=== PATIENT | female | born 1960 | race Caucasian/White ===

== ENCOUNTER → 2018-03-17 | Outpatient (REF) ==
[~2018-03-17] MED LIST: CETI-176 PO; CETI-184 PO; CHOL200025 PO; CLOT30SO6 TP; GABA-490 PO; GABA-549 PO; GOLYTE PO; LEVO88TA45 PO; MELO-205 PO; POLY119P24 PO; SOLI10TA8 PO; TOPI-119 PO; TOPI-121 PO; TRI05T TP; VENL150C61 PO
--- NOTE | 2018-03-17 13:40 | RADIOLOGY IMAGING REPORT ---
FACILITY: [facility] - [place] PATIENT NAME: Michelle Kaminski : 1960 MR: [id number] V: [id number] EXAM DATE: ORDERING PHYSICIAN: KUN CHRISTOPHER TECHNOLOGIST: [place] [facility] [place] : 1960 Visit/Account:[id number] Date of Sevice: 03/17/2018 Exam type: LUMBAR SPINE 2 OR 3 VIEW History: Chronic lower back pain radiates down both legs, right greater than left Comparison: January 15, 2016. Findings: Three views submitted for interpretation Five nonrib-bearing lumbar-type vertebral bodies present. There is mild straightening of normal lumb ar lordosis. There is no evidence of acute fractures or subluxations. There is moderate disc space narrowing L5-S1 and mild disc space narrowing L3-4 and L4-5. Anterior Osteophytes from L1 to L4. Mo derate degenerative facet joint changes L5-S1. Also noted are moderate spondylotic changes in the vi sualized portion of the lower thoracic spine IMPRESSION: 1. Spondylotic changes of the thoracolumbar spine as detailed above. Findings appear some are to th e prior examination Report Dictated By: Jennifer Villagomez MD at 03/17/2018 1:30 PM Report E-Signed By: Jennifer Villagomez MD at 03/17/2018 1:35 PM WSN:[email or web address]
== END ==
LOC: RAD 10:20
PROVIDERS: ATTEND Orthopaedic Surgery Orthopaedic Surgery of the Spine
DX: M54.5 Low back pain (principal)
CPT/HCPCS: 72100

== ENCOUNTER → 2018-04-14 | Outpatient (CLI) | payer OTHER ==
--- NOTE | 2018-04-14 13:16 | RADIOLOGY IMAGING REPORT ---
FACILITY: [facility] - [place] PATIENT NAME: HIRAL LOPEZ : [id number] MR: [id number] V: [id number] EXAM DATE: ORDERING PHYSICIAN: AYLEEN JEREZ TECHNOLOGIST: Teresa Stokes PROCEDURE:BILATERAL DIGITAL SCREENING MAMMOGRAM WITH CAD ASSISTED INTERPRETATION & 3D TOMOSYNTHESIS COMPARISON:10/30/16, 09/28/09 & 09/18/09 INDICATIONS:SREENING FINDINGS: Breast parenchyma is mostly fatty replaced. There are no mammographic findings concerning for malignancy. There is no significant interval change. DIAGNOSTIC CATEGORY 1--NEGATIVE. RECOMMENDATIONS: ROUTINE MAMMOGRAM AND CLINICAL EVALUATION. IMPRESSION: BIRADS 1: Negative. Dictated by: Willian Levine on 04/14/2018 at 11:52 Transcribed by: EMEKA on 04/14/2018 at 12:54 Approved by: Willian Levine on 04/14/2018 at 13:16 [facility]
== END ==
LOC: MAMO 09:30 → EDSTATUS 10:00 → MAMO 10:01
PROVIDERS: ATTEND Nurse Practitioner
DX: Z12.31 Encounter for screening mammogram for malignant neoplasm of breast (principal)
CPT/HCPCS: 77063; 77067

== ENCOUNTER → 2019-04-12 | Outpatient (CLI) | payer MEDICAID ==
--- NOTE | 2019-04-12 16:00 | RADIOLOGY IMAGING REPORT ---
FACILITY: [facility] - [place] PATIENT NAME: Michelle Kaminski : 1960 MR: [id number] V: [id number] EXAM DATE: ORDERING PHYSICIAN: DREA MONTOYA TECHNOLOGIST: Location[place] [facility] [place] Patient: Michelle Kaminski : 1960 Visit/Account:[id number] Date of Sevice: 04/12/2019 Technique: PELVIS, SACRUM & COCCYX HISTORY: Fall Comparison studies: None FINDINGS: There is no acute fracture. Joint space narrowing is noted within the femoroacetabular carmen nts. There are also degenerative changes at the SI joints. No evidence of pubic symphysis or sacroi liac diastases. IMPRESSION: 1. No acute osseous process. 2. Degenerative findings. Report Dictated By: Mychal Rojas DO at 04/12/2019 3:51 PM Report E-Signed By: Mychal Rojas DO at 04/12/2019 3:55 PM WSN:[email or web address]
--- NOTE | 2019-04-12 16:01 | RADIOLOGY IMAGING REPORT ---
FACILITY: [facility] - [place] PATIENT NAME: Michelle Kaminski : 1960 MR: [id number] V: [id number] EXAM DATE: ORDERING PHYSICIAN: DREA MONTOYA TECHNOLOGIST: Location: [facility] - [place] Patient: Michelle Kaminski : 1960 Visit/Account:[id number] Date of Sevice: 04/12/2019 Technique: PELVIS, SACRUM & COCCYX HISTORY: Fall Comparison studies: None FINDINGS: There is no acute fracture. Joint space narrowing is noted within the femoroacetabular carmen nts. There are also degenerative changes at the SI joints. No evidence of pubic symphysis or sacroi liac diastases. IMPRESSION: 1. No acute osseous process. 2. Degenerative findings. Report Dictated By: Mychal Rojas DO at 04/12/2019 3:51 PM Report E-Signed By: Mychal Rojas DO at 04/12/2019 3:55 PM WSN:[email or web address]
== END ==
LOC: RAD 15:26
PROVIDERS: ATTEND Nurse Practitioner Family
DX: R10.2 Pelvic and perineal pain (principal); M54.9 Dorsalgia, unspecified; W19.XXXA Unspecified fall, initial encounter
CPT/HCPCS: 72170; 72220

== ENCOUNTER → 2019-05-10 | Outpatient (CLI) | payer MEDICAID ==
[~2019-05-10] MED LIST changes: +LAMO25TA31 PO; +LOSA50TA80 PO; +METF-450 PO; +OLO2ODPT OD; +SIMV-49 PO
--- NOTE | 2019-05-12 09:55 | RADIOLOGY IMAGING REPORT ---
FACILITY[place] [facility] [place]IENT NAME: HIRAL LOPEZ : [id number] MR: [id number] V: [id number] EXAM DATE: [id number] ORDERING PHYSICIAN: DREA MONTOYA TECHNOLOGIST: Teresa Stokes PROCEDURE: BILATERAL DIGITAL SCREENING MAMMOGRAM WITH CAD ASSISTED INTERPRETATION & 3D TOMOSYNTHESIS REASON FOR STUDY: Screening. FAMILY HISTORY OF BREAST CANCER: None. BREAST PROCEDURES/TREATMENTS: None. COMPARISON: From 2007. VIEWS OBTAINED: 2D & 3D full field CC & MLO. BREAST DENSITY: The breasts are almost entirely fatty. MAMMOGRAM FINDINGS: There is a 4mm nodule in the Left breast 12 o'clock position 17cm from nipple which is new from our exams and warrants additional evaluation. Benign course macrocalcifications anterior Left breast are stable. The Right breast is negative. No concerning masses or microcalcifications on the Right. IMPRESSION: BIRADS 0: Incomplete. DIAGNOSTIC CATEGORY 0--INCOMPLETE: NEED ADDITIONAL IMAGING EVALUATION. RECOMMENDATIONS: ADDITIONAL MAMMOGRAPHIC VIEWS REQUIRED: LEFT BREAST 4MM NODULE 12 O'CLOCK POSITION 17CM FROM THE NIPPLE. SPOT COMPRESSION Combo VIEWS IN THE CC & MLO PROJECTIONS. ULTRASOUND: LEFT BREAST. Dictated by: Jordy Spaulding M.D. on 05/12/2019 at 8:45 Transcribed by: JUDITH on 05/12/2019 at 8:56 Approved by: Jordy Spaulding M.D. on 05/12/2019 at 9:52 [facility]
== END ==
LOC: MAMO 00:26
PROVIDERS: ATTEND Nurse Practitioner Family
DX: R92.2 Inconclusive mammogram (principal)
CPT/HCPCS: 77063; 77067

== ENCOUNTER 2019-05-19 01:50 | Day surgery (SDC) | payer MEDICAID ==
--- NOTE | 2019-05-10 15:40 | EKG ---
FACILITY: [facility] - [place] PATIENT NAME: HIRAL LOPEZ : [id number] MR: [id number] V: [id number] EXAM DATE: ORDERING PHYSICIAN: LUIS E MENDIETA TECHNOLOGIST: ROXANNE Ashford Reason : PRE-OP Blood Pressure : / mmHG Vent. Rate : 086 BPM Atrial Rate : 086 BPM P-R Int : 172 ms QRS Dur : 074 ms QT Int : 394 ms P-R-T Axes : 057 108 035 degrees QTc Int : 471 ms Sinus rhythm Possible left atrial enlargement Rightward axis Abnormal ECG No previous ECGs available Confirmed by KRISTEN WALSH ([id number]) on 05/10/2019 4:26:38 PM Referred By: GAYATRI Confirmed By:KRISTEN WALSH
[~2019-05-19] VITALS: Ht 165.1 cm; Wt 102.5 kg
[2019-05-19] MEDS ORDERED: PROPOFOL EMUL(*) 10MG/ML 20 ML 40 ML ONE (06:57)
[2019-05-19] MEDS ORDERED: NORMOSOL R SOLN(*) 1000 ML BAG 1,000 ML IV PRN (10:05)
[2019-05-19] MEDS ORDERED: LIDOCAINE/SOD BICARB 8.4% SYR ID ONE (10:05)
[2019-05-19 10:52] VITALS: BP 124/62
[2019-05-19] MEDS ORDERED: PROPOFOL EMUL(*) 10MG/ML 20 ML 20 ML ONE ×2 (12:24→12:41)
[2019-05-19 12:53] VITALS: BP 116/69
--- NOTE | 2019-05-19 12:59 | Short(Outpt) Discharge Summary ---
Discharge Summary Reason for Hosp/Final Diag: (1) History of colon polyps Status: Chronic Hospital Course & Plan: Colonoscopy with polypectomy x5 completed without problems. (2) Colon cancer screening Status: Chronic Departure Discharge to: Home, Self Care Discharge Instructions Home Meds Reported Medications Olopatadine (PATADAY) 0.05 Ml Soln, 0.05 ML OD PRN for ALLERGY SYMPTOMS 05/12/19 Losartan Potassium (LOSARTAN POTASSIUM) 50 Mg Tablet, 100 MG PO QDAY 05/12/19 Simvastatin (SIMVASTATIN) 20 Mg Tablet, 20 MG PO HS, TAB 05/12/19 Gabapentin (GABAPENTIN) 300 Mg Capsule, 1200 MG PO QPM, CAPSULE 05/12/19 Lamotrigine (Lamotrigine (Blue)) 25 Mg (35 Tabs) Tab.ds.pk, 100 MG PO BID 04/16/19 Metformin Hcl (METFORMIN HCL) 500 Mg Tablet, 2 TAB PO BID, TAB 04/16/19 Triamcinolone Acet 0.5% (TRIAMCINOLONE ACETONIDE 0.5%) 15 Gm Cr, 15 GM TP, TUBE 05/01/16 Gabapentin (NEURONTIN) 300 Mg Capsule, 1800 MG PO QAM, CAPSULE 04/26/16 Meloxicam (MELOXICAM) 7.5 Mg Tablet, 7.5 MG PO QDAY 04/08/16 Cholecalciferol (Vitamin D3) (VITAMIN D3) 2,000 Unit Capsule, 2000 UNIT PO QDAY, CAPSULE 04/08/16 Solifenacin Succinate (VESICARE) 10 Mg Tablet, 10 MG PO QDAY 04/08/16 Levothyroxine Sodium (LEVOTHYROXINE SODIUM) 88 Mcg Tablet, 100 MCG PO QDAY 04/08/16 Venlafaxine Hcl (EFFEXOR XR) 150 Mg Cap.er.24h, 187.5 MG PO QDAY 04/08/16 Diet: Regular Activity: As Tolerated Special Instructions: Your colonoscopy was completed without problems. I removed 5 polyps from your colon. My office will call you in the next week or two to let you know what the polyps are and when your next colonoscopy should be (either 3 or 5 years) depending on the pathology results. LUIS E MENDIETA MD May 19, 2019 12:59
[2019-05-19 13:15] VITALS: BP 101/71
[2019-05-19 13:27] VITALS: BP 113/62
[2019-05-19 13:29] VITALS: BP 107/69
--- NOTE | 2019-05-19 14:35 | NUR ---
1253- PT. RECEIVED FROM THE OR VIA STRETCHER WITH THE SIDERAILS UP. SBAR RECEIVED FROM [facility]END AND DR. GARCIA. SEE ADMISSION ASSESSMENT. 1304- TURNED PT. O2 DOWN TO 3LPM. 1320- TURNED PT O2 DOWN TO 1LPM NC AND GAVE THE PT WATER. 1324- PT. STATES THAT SHE NEEDS TO USE THE RESTROOM SO ORTHOSTATICS PREFORMED AND PT. RETURNED TO ROOM AIR. 1354- WATCHING PT. O2 AND SHE OCCATIONALLY DROPS TO 85% AND THEN COMES RIGHT BACK UP TO 88% TO 92%. I GAVE THE PT. AN INCENTIVE SPIROMETER AND SHOWED HER HOW TO USE IT. PT. O2 JUMPS UP TO 98 % WITH I.S. USE. 1400- PT. O2 DROPS OCCATIONALLY AGAIN TO 85% SO PT AND I WALKED LAPS. 1415- PT. O2 STAYED ABOVE 88% (HER ADMISSION SPO2) FOR THE LAST 15 MINUTES. PT. NOW GETTING DRESSED. 1415- IV TAKEN OUT AND PRESSURE DRESSING APPLIED. 1420- PT. FATHER BROUGHT TO THE ROOM AND DISCHARGE INSTRUCTIONS GONE OVER WITH PT AND FATHER. ALL QUESTIONS ANSWERED AND PT. STATED UNDERSTANDING. 1425- PT. ACCOMPANIED OUT TO FATHERS VEHICLE AMBULATORY BY MYSELF AND PT. FATHER. SEE DISCHARGE ASSESSMENT.
== END 2019-05-19 14:25 | disposition home or self-care (01) ==
LOC: OR 01:50
PROVIDERS: ATTEND Surgery
DX: Z12.11 Encounter for screening for malignant neoplasm of colon (principal); D12.2 Benign neoplasm of ascending colon; D12.3 Benign neoplasm of transverse colon; E78.5 Hyperlipidemia, unspecified; E03.9 Hypothyroidism, unspecified; F31.9 Bipolar disorder, unspecified; F17.210 Nicotine dependence, cigarettes, uncomplicated; I10 Essential (primary) hypertension; L30.9 Dermatitis, unspecified; R73.03 Prediabetes
CPT/HCPCS: 00811; 36416; 45385; 82948; 88305; 93005; J2704

== ENCOUNTER → 2019-06-24 | Outpatient (CLI) | payer MEDICAID ==
--- NOTE | 2019-06-25 10:39 | RADIOLOGY IMAGING REPORT ---
FACILITY: [facility] - [place] PATIENT NAME: HIRAL LOPEZ : [id number] MR: [id number] V: [id number] EXAM DATE: ORDERING PHYSICIAN: DREA MONTOYA TECHNOLOGIST: Lisseth Orosco PROCEDURE:LEFT DIGITAL MAMMOGRAM DIAGNOSTIC WITH CAD ASSISTED INTERPRETATION & 3D TOMOSYNTHESIS REASON FOR STUDY: Further evaluation FAMILY HISTORY OF BREAST CANCER: BREAST PROCEDURES/TREATMENTS: COMPARISON STUDIES: 05/10/19, 04/14/18, 10/30/16 MAMMOGRAM VIEWS OBTAINED: 2D & 3D spot compression views in the Left CC & Left MLO projections BREAST DENSITY: MAMMOGRAM FINDINGS: The previously noted 4mm nodule in the Left breast 12 o'clock position 17cm from the nipple appeared to dissipate upon compression views & likely represented a summation shadow. DIAGNOSTIC CATEGORY 2--BENIGN FINDING. RECOMMENDATIONS: ROUTINE MAMMOGRAM AND CLINICAL EVALUATION. IMPRESSION: BIRADS 2: Benign finding. Dictated by: Jennifer Villagomez M.D. on 06/24/2019 at 16:54 Transcribed by: EMEKA on 06/25/2019 at 10:26 Approved by: Jennifer Villagomez M.D. on 06/25/2019 at 10:35 [facility]
== END ==
LOC: US 06-16 00:54 → MAMO 06:49
PROVIDERS: ATTEND Nurse Practitioner Family
DX: R92.2 Inconclusive mammogram (principal)
CPT/HCPCS: 77061; 77065